=== PATIENT | female | born 1985 | race African-American/Black ===

== ENCOUNTER 2017-01-07 16:03 | Emergency (ER) | payer MEDICAID ==
[~2017-01-07] VITALS: Ht 175.3 cm; Wt 122.0 kg
[2017-01-07 17:38] VITALS: BP 112/73
== END 2017-01-07 18:01 | disposition home or self-care (01) ==
LOC: ER 16:11
DX: S80.862A Insect bite (nonvenomous), left lower leg, initial encounter (principal); S80.861A Insect bite (nonvenomous), right lower leg, initial encounter; W57.XXXA Bitten or stung by nonvenomous insect and other nonvenomous arthropods, initial encounter; Y93.89 Activity, other specified; Y92.89 Other specified places as the place of occurrence of the external cause; Y99.8 Other external cause status